=== PATIENT | male | born 1975 | race American Indian/Alaskan Native ===

== ENCOUNTER 2016-04-16 19:52 | Emergency (ER) | payer OTHER ==
--- NOTE | 2016-04-16 20:03 | Emergency Department Report ---
ED GI Bleed HPI - General Chief complaint: GI Bleed Stated complaint: STOMACH PAIN Time Seen by Provider: 04/16/16 20:02 Source: patient Mode of arrival: Ambulatory Limitations: No Limitations - History of Present Illness Initial comments: This is a 40-year-old male, previously unknown to me. Primary care Dr.: Dr Astorga Gastroenterology: Dr Donahue, Dr Tejeda Past medical history includes hypertension, and distant history of epidural abscess at T3/T4. The patient presents to the ER with 1 day of intermittent brown stool mixed with red blood. He reports 3 episodes today. It is painless. No fevers or chills. No chest pain or shortness of breath. No nausea, vomiting or diarrhea. No hematemesis. No irritative urinary symptoms. No testicular pain. Patient reports recent travel to [facility]. He has spoken to his feed research aide, Dr. Donahue. He comes to the ER for laboratory studies. MD complaint: blood streaked stool -: Gradual Quality: painless Consistency: intermittent Improves with: none Worsens with: none Context: foreign travel Associated Symptoms: denies: abdominal pain, nausea, vomiting, epistaxis, fever/ chills, headaches, loss of appetite, malaise, easy bruising, rash, shortness of breath, syncope, weakness - Related Data Home Medications Medication Instructions Recorded Confirmed Last Taken amLODIPine [Norvasc] 10 mg PO DAILY 06/01/14 04/16/16 04/16/16 Allergies Allergy/AdvReac Type Severity Reaction Status Date / Time No Known Allergies Allergy Verified 06/01/14 10:03 ED Review of Systems ROS: Stated complaint: STOMACH PAIN Other details as noted in HPI Constitutional: denies: fever, malaise Eyes: denies: vision change ENT: denies: epistaxis Respiratory: denies: cough Cardiovascular: denies: chest pain Gastrointestinal: hematochezia. denies: abdominal pain Genitourinary: denies: urgency, dysuria Musculoskeletal: denies: back pain Skin: denies: lesions Neurological: denies: weakness ED Past Medical Hx - Past Medical History Hx Hypertension: Yes - Social History Smoking Status: Never Smoker Substance Use Type: Alcohol - Medications Home Medications: Home Medications Medication Instructions Recorded Confirmed Last Taken Type amLODIPine [Norvasc] 10 mg PO DAILY 06/01/14 04/16/16 04/16/16 History ED Physical Exam - General General appearance: alert, in no apparent distress - Head Head exam: Present: atraumatic, normocephalic - Eye Eye exam: Present: normal appearance, EOMI. Absent: nystagmus - ENT ENT exam: Present: normal exam, normal orophraynx, mucous membranes moist - Neck Neck exam: Present: normal inspection, full ROM. Absent: tenderness, meningismus - Respiratory Respiratory exam: Present: normal lung sounds bilaterally. Absent: respiratory distress, wheezes, rales, rhonchi, stridor - Cardiovascular Cardiovascular Exam: Present: regular rate, normal rhythm, normal heart sounds. Absent: bradycardia, tachycardia, irregular rhythm, systolic murmur, diastolic murmur, rubs, gallop - GI/Abdominal GI/Abdominal exam: Present: soft, normal bowel sounds. Absent: distended, tenderness, guarding, rebound, rigid, pulsatile mass - Rectal Rectal exam: Present: deferred, other (patient declines/refuses the rectal examination) - Extremities Exam Extremities exam: Present: normal inspection, full ROM, normal capillary refill. Absent: tenderness, pedal edema, joint swelling, calf tenderness - Back Exam Back exam: Present: normal inspection, full ROM. Absent: tenderness, CVA tenderness (R), CVA tenderness (L), muscle spasm, paraspinal tenderness, vertebral tenderness - Neurological Exam Neurological exam: Present: alert, oriented X3, normal gait, other (Extraocular movements intact. Tongue midline. No facial droop. Facial sensation intact to light touch in the V1, V2, V3 distribution bilaterally. 5 and 5 strength in 4 extremities.. Sensation is intact to light touch in 4 extremities.). Absent : motor sensory deficit - Psychiatric Psychiatric exam: Present: normal affect, normal mood - Skin Skin exam: Present: warm, dry, intact, normal color. Absent: rash ED Course Vital Signs 04/16/16 04/16/16 04/16/16 20:02 20:15 21:35 Temperature 98.7 F Pulse Rate 90 88 Respiratory 20 20 20 Rate Blood Pressure 167/110 Blood Pressure 141/93 131/98 [Right] O2 Sat by Pulse 100 100 99 Oximetry - Reevaluation(s) Reevaluation #1: 04/16/16 21:17 Differential diagnosis: Angiodysplasia, diverticulosis, hemorrhoids Assessment and plan: 40-year-old male with painless rectal bleeding times one day. He is afebrile with reassuring vital signs with the exception of elevated blood pressure. Laboratory studies were unremarkable. I contacted the covering feed research aide for his private feed research aide Dr Tejeda , Who informed me that the patient should contact the office in the morning at 9 :00, and they would see him earlier on in the afternoon. The patient is counseled to follow up with his outpatient primary care doctor for his elevated blood pressure. He will be discharged at this time. Return precautions were reviewed. 04/16/16 21:24 ED Medical Decision Making - Lab Data Result diagrams: 04/16/16 Unknown 04/16/16 Unknown Vital Signs 04/16/16 04/16/16 20:02 20:15 Temperature 98.7 F Pulse Rate 90 Respiratory 20 20 Rate Blood Pressure 167/110 Blood Pressure 141/93 [Right] O2 Sat by Pulse 100 100 Oximetry Lab Results 04/16/16 04/16/16 04/16/16 Range/Units Unknown Unknown Unknown WBC 7.6 (4.5-11.0) K/mm3 RBC 4.24 (3.65-5.03) M/mm3 Hgb 14.1 (11.8-15.2) gm/dl Hct 40.5 (35.5-45.6) % MCV 96 H (84-94) fl MCH 33 H (28-32) pg MCHC 35 H (32-34) % RDW 14.3 (13.2-15.2) % Plt Count 281 (140-440) K/mm3 PT 13.8 (12.2-14.9) Sec. INR 1.07 (0.87-1.13) APTT 28.5 (24.2-36.6) Sec. Sodium 137 (137-145) mmol/L Potassium 4.2 (3.6-5.0) mmol/L Chloride 98.7 (98-107) mmol/L Carbon Dioxide 25 (22-30) mmol/L Anion Gap 18 mmol/L BUN 26 H (9-20) mg/dL Creatinine 1.3 (0.8-1.5) mg/dL Estimated GFR > 60 ml/min BUN/Creatinine Ratio 20.00 % Glucose 165 H (75-100) mg/dL Calcium 9.5 (8.4-10.2) mg/dL Total Bilirubin 0.6 (0.1-1.2) mg/dL AST 33 (5-40) units/L ALT 41 (7-56) units/L Alkaline Phosphatase 52 (35-129) units/L Total Protein 6.3 (6.3-8.2) g/dL Albumin 4.0 (3.9-5) g/dL Albumin/Globulin Ratio 1.7 % Critical care attestation.: If time is entered above; I have spent that time in minutes in the direct care of this critically ill patient, excluding procedure time. ED Disposition Clinical Impression: Bloody stool Disposition: DISCHARGED TO HOME OR SELFCARE Is pt being admited?: No Does the pt Need Aspirin: No Condition: Stable Instructions: Gastrointestinal Bleeding (ED) Additional Instructions: Follow-up tomorrow at 1:00 with your feed research aide. Rest and avoid heavy lifting. Avoid strenuous physical activity. Follow-up with your primary care doctor for elevated blood pressure. Long-term complications of elevated blood pressure include stroke, heart attack, disability, , paralysis, permanent loss of quality of life. Return to the ER right away with fevers or chills, chest pain or shortness of breath, dizziness lightheadedness, inability to tolerate liquid feeds. Referrals: DR DESTIN [Other] - 3-5 Days XENIA TEJEDA MD [Staff Physician] - 3-5 Days Forms: Accompanied Note
[2016-04-16] MEDS ORDERED: NACL 0.9% 1000 ML 1,000 ML ONE (20:04)
[2016-04-16] MEDS ORDERED: PROTONIX IV ONE ×2 (20:04→20:35)
[2016-04-16 20:30] LABS: Hematocrit 40.5 % (35.5-45.6); Hemoglobin 14.1 gm/dl (11.8-15.2); Mean Corpuscular HGB Conc 35 % (32-34); Mean Corpuscular Hemoglobin 33 pg (28-32); Mean Corpuscular Volume 96 fl (84-94); Platelet Count 281 K/mm3 (140-440); Red Blood Count 4.24 M/mm3 (3.65-5.03); Red Cell Distribution Width 14.3 % (13.2-15.2); White Blood Count 7.6 K/mm3 (4.5-11.0)
[2016-04-16] MEDS ORDERED: NACL 0.9% 1000 ML 1,000 ML IV ONE (20:35)
[2016-04-16 20:40] LABS: INR 1.07 (0.87-1.13)
[2016-04-16 20:41] LABS: Partial Thromboplastin Time 28.5 Sec. (24.2-36.6)
[2016-04-16 20:56] LABS: Alanine Aminotransferase 41 units/L (7-56); Albumin/Globulin Ratio 1.7 %; Alkaline Phosphatase 52 units/L (35-129); Bilirubin,Total 0.6 mg/dL (0.1-1.2); Blood Urea Nitrogen 26 mg/dL (9-20); Calcium 9.5 mg/dL (8.4-10.2); Carbon Dioxide 25 mmol/L (22-30); Chloride 98.7 mmol/L (98-107); Glucose 165 mg/dL (75-100); Potassium 4.2 mmol/L (3.6-5.0); Sodium 137 mmol/L (137-145); Total Protein 6.3 g/dL (6.3-8.2)
[2016-04-16 21:15] LABS: Anion Gap 18 mmol/L
[2016-04-16 21:36] VITALS: BP 131/98
--- NOTE | 2016-04-17 00:35 | Admit Criteria Form ---
Admission Criteria Documentation: GASTROINTESTINAL BLEEDING, LOWER Clinical Indications for Admission to Inpatient Care ( Place 'X' for any and all applicable criteria): Admission is indicated for ANY ONE of the following(1)(2)(3)(4)(5): [ ]I. Active gross bleeding per rectum [ X]II. Inpatient admission required rather than observation care (Also use Gastrointestinal Bleeding, Lower: Observation Care as appropriate) because of ANY ONE of the following: [ ]a) Hemodynamic instability that is severe or persistent [ ]b) Anemia requiring inpatient admission as indicated by ALL of the following: [ ]1) Presence of significant clinical finding indicated by ANY ONE of the following: [ ]A. Tachycardia for age [ ]B. Orthostatic vital sign changes [ ]C. Cognitive impairment [ ]D. Heart failure [ ]E. Chest pain [ ]F. Exertional dyspnea [ ]G. Other findings suggesting inadequate perfusion (eg, peripheral or myocardial ischemia, end organ dysfunction) [ ]2) Initial (eg, emergency department, observation care) treatment with transfusion or volume replacement is judged inappropriate (due to severity of the finding) or has been ineffective [ ]c) Severe pain requiring acute inpatient management [ ]d) Absent bowel sounds with complete ileus [ ]e) Signs of intestinal obstruction or peritonitis [A] [ ]f) High-risk low platelet count [ ]g) Severe electrolyte abnormalities requiring inpatient care [ ]h) Acute renal failure [ ]i) High fever or infection requiring inpatient admission as indicated by ANY ONE of the following(8)(9): [ ]1) Appropriate outpatient or observation care antimicrobial treatment unavailable, not effective, or not feasible Documented bacteremia [ ]2) Documented bacteremia [ ]3) Temperature greater than 104.9 degrees F ( 40.5 degrees C) (oral) [ ]4) Temperature greater than 103.1 degrees F ( 39.5 degrees C) (oral) or less than 96.8 degrees F (36 degrees C) (rectal) that does not respond to all emergency treatment measures [ ]j) IV fluid to replace significant ongoing losses ( greater than 3 L/m2 per day) [ ]k) Immediate inpatient surgery needed [ ]l) Parenteral nutrition regimen that must be implemented on inpatient basis [X ]m) Other condition, treatment or monitoring requiring inpatient admission [ ]III. Unstable comorbid illness (renal, hepatic, pulmonary, hematologic, neurologic, or cardiac) [ ]IV. Failure to control bleeding after colonoscopy [ ]V. Coagulopathy [ ]. Suspected or known ischemic colitis(6) [ ]VII. Previous aortic graft placement or known aortic aneurysm Extended stay beyond goal length of stay may be needed for(3)(4)(28): [ ]a) Emergency surgery [ ]b) Coagulation abnormalities(26) [ ]c) Recurrent or persistent bleeding, continued vital sign instability(27)( 28) [ ]d) Active comorbidities (eg, renal insufficiency, heart failure, pre- existing liver disease) The original [employer] content created by [employer] has been revised. The portions of the content which have been revised are identified through the use of italic text or in bold, and [facility] has neither reviewed nor approved the modified material. All other unmodified content is copyright [employer] [facility]. Please see references footnoted in the original [employer] edition 2016 Admission Criteria Met: Yes
== END 2016-04-16 21:45 | disposition home or self-care (01) ==
LOC: ED 19:52
DX: K92.1 Melena (principal); I10 Essential (primary) hypertension
CPT/HCPCS: 36415; 80053; 85027; 85610; 85730; 96361; 96374; 99283; C9113; J7030